=== PATIENT | female | born 1950 | race Caucasian/White ===

== ENCOUNTER 2022-06-16 08:49 | Day surgery (SDC) | payer OTHER ==
[~2022-06-16] VITALS: Ht 160 cm; Wt 82.7 kg
[2022-06-16] MEDS ORDERED: ATEN25 PO (10:26)
[2022-06-16] MEDS ORDERED: Lisinopril2.5 MG PO (10:27)
[2022-06-16] MEDS ORDERED: GABA400 PO (10:28)
[2022-06-16] MEDS ORDERED: Neurontin800 MG PO (10:28)
[2022-06-16] MEDS ORDERED: Glipizide Xl2.5 MG (10:30)
[2022-06-16] MEDS ORDERED: ALOGLIPTIN12.5 M1 PO (10:31)
[2022-06-16] MEDS ORDERED: Prozac40 MG PO (10:31)
[2022-06-16] MEDS ORDERED: Vitamin B-12100 MCG PO (10:32)
[2022-06-16] MEDS ORDERED: Vitamin D1000 UNI1 PO (10:33)
[2022-06-16] MEDS ORDERED: BUSP5 PO (10:34)
[2022-06-16] MEDS ORDERED: INSULIN GL100 UNIT/4 SC (10:34)
[2022-06-16] MEDS ORDERED: HYDHCL25 PO (10:35)
[2022-06-16] MEDS ORDERED: PRAZ5 PO (10:36)
[2022-06-16] MEDS ORDERED: DOXEPIN HCL6 MG PO (10:36)
[2022-06-16] MEDS ORDERED: SIMV80 PO (10:37)
--- NOTE | 2022-06-16 11:22 | NUR ---
06/16/22 [facility] 1104 TIMEOUT COMPLETED, CORRECT PATIENT, PROCEDURE, MEDICATION, SITE, ALLERGIES CONFIRMED, PATIENT ELECTED TO PROCEED WITH PROCEDURE. RELAXING MEDICATION GIVEN BY DR URBINA. PT TOLERATED WELL.
== END 2022-06-16 12:25 | disposition home or self-care (01) ==
LOC: ORSCSDS 08:49
PROVIDERS: Orthopaedic Surgery
PROC: 01N50ZZ Release Median Nerve, Open Approach (ICD-10-PCS; principal; 2022-06-16 11:00)
DX: G56.03 Carpal tunnel syndrome, bilateral upper limbs (principal); I10 Essential (primary) hypertension; E11.9 Type 2 diabetes mellitus without complications; E78.5 Hyperlipidemia, unspecified; F32.A Depression, unspecified; Z87.891 Personal history of nicotine dependence; Z68.32 Body mass index [BMI] 32.0-32.9, adult; E66.9 Obesity, unspecified
CPT/HCPCS: 82947; J2250; J7120

== ENCOUNTER 2022-09-01 11:33 | Day surgery (SDC) | payer OTHER ==
[~2022-09-01] VITALS: Ht 160 cm; Wt 82.8 kg
[~2022-09-01 11:33] MED LIST: ALOGLIPTIN12.5 M1 PO; ATEN25 PO; BUSP5 PO; DOXEPIN HCL6 MG PO; GABA400 PO; Glipizide Xl2.5 MG; HYDHCL25 PO; INSULIN GL100 UNIT/4 SC; Lisinopril2.5 MG PO; Neurontin800 MG PO; PRAZ5 PO; Prozac40 MG PO; SIMV80 PO; Vitamin B-12100 MCG PO; Vitamin D1000 UNI1 PO
[2022-09-01] MEDS ORDERED: CYCL10 PO (12:07)
[2022-09-01] MEDS ORDERED: FAMO20 (12:13)
[2022-09-01] MEDS ORDERED: IBUP400 (12:14)
[2022-09-01] MEDS ORDERED: METF500 PO (12:16)
[2022-09-01] MEDS ORDERED: LEVSOD112 (12:17)
[2022-09-01] MEDS ORDERED: LORA10ER PO (12:17)
[2022-09-01] MEDS ORDERED: DULO60 PO (12:17)
--- NOTE | 2022-09-01 12:30 | NUR ---
09/01/22 [address] URBINA IN WITH PT TO DISCUSS CONCERNS REGARDING PT'S FALL. PT HURT THE RIGHT ARM AND [facility]. SHE IS SCHEDULED TO HAVE A PROCEEDURE ON THE LEFT ARM. PT IS IN A WHEELCHAIR AND WAS WITNESSED USING BOTH ARMS TO PUSH HERSELF UP AND OUT OF THE CHAIR. PT ALSO HAS POST POLIO SYNDROM. AFTER DISCUSSION PT ELECTS TO PROCEED WITH THE PROCEEDURE STATING SHE WILL HAVE HER HELP HER AT HOME.
--- NOTE | 2022-09-01 13:30 | NUR ---
09/01/22 1330 WANDA HERNANDEZ 0.1MG OF EPI ADDED TO 20MLS OF ROPIVACAINE 0.5% TO CREATE A LOCAL SOLUTION OF ROPIVACAINE 0.5% WITH EPI 1:200,000. LOCAL POURED ONTO STERILE FIELD FOR USE DURING CASE.
--- NOTE | 2022-09-01 15:49 | NUR ---
09/01/22 1549 Flor Reyna CONNOR PRESENT DURING DC INSTRUCTIONS. PT PAIN TOLERABLE AT 6. WILL TAKE MEDICATION WHEN SHE GETS HOME.
== END 2022-09-01 15:49 | disposition home or self-care (01) ==
LOC: ORSCSDS 11:33
PROVIDERS: Orthopaedic Surgery
PROC: 01N40ZZ Release Ulnar Nerve, Open Approach (ICD-10-PCS; principal; 2022-09-01 13:15)
PROC: 01N50ZZ Release Median Nerve, Open Approach (ICD-10-PCS; principal; 2022-09-01 13:15)
DX: G56.02 Carpal tunnel syndrome, left upper limb (principal); G56.22 Lesion of ulnar nerve, left upper limb; I10 Essential (primary) hypertension; E11.9 Type 2 diabetes mellitus without complications; E03.9 Hypothyroidism, unspecified; K21.9 Gastro-esophageal reflux disease without esophagitis; Z79.899 Other long term (current) drug therapy
CPT/HCPCS: 82947; A9270; J0171; J0690; J1100; J2250; J2370; J2405; J2704; J2795; J3010; J7120